=== PATIENT | male | born 1995 | race Two or more races ===

== ENCOUNTER 2017-02-09 22:37 | Emergency (ER) | payer OTHER ==
[~2017-02-09] VITALS: Ht 175.3 cm; Wt 54.2 kg
[~2017-02-09 22:37] MED LIST: AMOX-430 PO
[2017-02-10] MEDS: IBUPROFEN 600 MG TABLET PO ONE (00:41)
[2017-02-10] MEDS: ALBUTEROL SULFATE 2.5 MG/3 ML NEBU NEB ONE (00:42)
[2017-02-10] MEDS ORDERED: IBUPROFEN 600 MG TABLET ONE (00:49)
[2017-02-10] MEDS ORDERED: ALBUTEROL SULFATE 2.5 MG/3 ML NEBU ONE (00:50)
[2017-02-10 01:02] LABS: BILIRUBIN,DIRECT 0.1 mg/dL (0.0-0.2); BILIRUBIN,TOTAL 0.5 mg/dL (0.2-1.0); CALCIUM 9.1 mg/dL (8.5-10.1); CREATININE 0.9 mg/dL (0.6-1.3); POTASSIUM 3.5 mmol/L (3.5-5.1); TOTAL PROTEIN, SERUM 7.7 g/dL (6.4-8.2)
[2017-02-10 01:05] LABS: BASOPHILS % (AUTO) 0.4 % (0.0-2.0); EOSINOPHILS # (AUTO) 0.1 K/uL (0.0-0.7); EOSINOPHILS % (AUTO) 0.6 % (0.0-7.0); HEMOGLOBIN 13.1 g/dL (11.5-15.5); LYMPHOCYTES # (AUTO) 0.9 K/uL (0.8-4.8); LYMPHOCYTES % (AUTO) 9.4 % (20.5-74.5); MEAN CORPUSCULAR HEMOGLOBIN 29.6 uug (27.0-31.0); MEAN CORPUSCULAR HGB CONC 34 g/dL (32.0-37.0); MONOCYTES # (AUTO) 0.9 K/uL (0.1-1.30); MONOCYTES % (AUTO) 9.3 % (0-11); NEUTROPHILS # (AUTO) 8.2 K/uL (1.8-8.9); NEUTROPHILS % (AUTO) 80.3 % (31.5-64.5); PLATELET COUNT (AUTO) 161 K/uL (150-450); RED BLOOD CELL COUNT(AUTO) 4.43 MIL/uL (3.90-5.30); RED CELL DISTRIBUTION WIDTH 12.1 % (11.5-14.5); WHITE BLOOD COUNT (AUTO) 10.1 K/uL (4.5-14.5)
--- NOTE | 2017-02-10 02:01 | NUR ---
Patient discharged to home in stable conditon. Written and verbal after care instructions given. Patient verbalizes understanding of instructions.
[2017-02-10 02:05] VITALS: BP 118/62
== END 2017-02-10 02:01 | disposition home or self-care (01) ==
LOC: ER 22:37
DX: B34.9 Viral infection, unspecified (principal); M54.9 Dorsalgia, unspecified; F19.10 Other psychoactive substance abuse, uncomplicated
CPT/HCPCS: 36415; 71010; 80048; 80076; 85025; 93005; 94640; 99285; A4663 ×2

== ENCOUNTER 2017-02-10 13:24 | Emergency (ER) | payer OTHER ==
[~2017-02-10] VITALS: Ht 175.3 cm; Wt 54.0 kg
[2017-02-10] MEDS: IV NORMAL SALINE 1000 ML BAG IV ONE ×2 (15:30→17:45)
[2017-02-10 15:42] LABS: *BILIRUBIN,URIN NEGATIVE (NEGATIVE); *BLOOD, URINE NEGATIVE (NEGATIVE); *CLARITY,URINE CLEAR (CLEAR); *COLOR,URINE YELLOW (YELLOW); *KETONES,URINE NEGATIVE (NEGATIVE); *PROTEIN,URINE 1+ (NEGATIVE); LEUKOCYTE ESTERASE ,URINE NEGATIVE (NEGATIVE); NITRITE, URINE NEGATIVE (NEGATIVE); UGLUCOSE NEGATIVE (NEGATIVE)
[2017-02-10 15:42] LABS: BASOPHILS # (AUTO) 0.1 K/uL (0.0-0.2); BASOPHILS % (AUTO) 0.6 % (0.0-2.0); EOSINOPHILS % (AUTO) 0.2 % (0.0-7.0); HEMATOCRIT 42.6 % (35.0-45.0); HEMOGLOBIN 14.1 g/dL (11.5-15.5); LYMPHOCYTES # (AUTO) 0.9 K/uL (0.8-4.8); LYMPHOCYTES % (AUTO) 8.6 % (20.5-74.5); MEAN CORPUSCULAR HEMOGLOBIN 29.8 uug (27.0-31.0); MEAN CORPUSCULAR HGB CONC 33 g/dL (32.0-37.0); MEAN CORPUSCULAR VOLUME 90.1 fL (77.0-95.0); MONOCYTES # (AUTO) 1.2 K/uL (0.1-1.30); MONOCYTES % (AUTO) 11.2 % (0-11); NEUTROPHILS # (AUTO) 8.7 K/uL (1.8-8.9); NEUTROPHILS % (AUTO) 79.4 % (31.5-64.5); PLATELET COUNT (AUTO) 164 K/uL (150-450); RED BLOOD CELL COUNT(AUTO) 4.73 MIL/uL (3.90-5.30); RED CELL DISTRIBUTION WIDTH 12.2 % (11.5-14.5); WHITE BLOOD COUNT (AUTO) 10.9 K/uL (4.5-14.5)
[2017-02-10 15:43] LABS: CALCIUM 8.8 mg/dL (8.5-10.1); CREATININE 0.9 mg/dL (0.6-1.3)
[2017-02-10] MEDS: CLINDAMYCIN PHOSPHATE IV 600 MG in IV DEXTROSE 5% 100 ML IV ONE (15:43)
[2017-02-10] MEDS ORDERED: CLINDAMYCIN PHOSPHATE 600 MG/4 ML VIAL ONE (15:47)
[2017-02-10 15:50] LABS: TROPONIN I < 0.017 ng/mL (0.00-0.056)
[2017-02-10 15:53] LABS: MUCUS,URINE MANY /LPF (0-FEW); RBC,URINE 0-3 /HPF (0-3)
[2017-02-10 16:00] LABS: ALBUMIN 3.8 g/dL (3.4-5.0); BILIRUBIN,DIRECT 0.1 mg/dL (0.0-0.2); BILIRUBIN,TOTAL 0.5 mg/dL (0.2-1.0); TOTAL PROTEIN, SERUM 7.6 g/dL (6.4-8.2)
[2017-02-10 16:08] LABS: LACTIC ACID 1.7 mmol/L (0.4-2.0)
[2017-02-10] MEDS: KETOROLAC TROMETHAMINE 30 MG INJ IVP ONE (16:55)
[2017-02-10] MEDS ORDERED: KETOROLAC TROMETHAMINE 30 MG INJ ONE (17:02)
--- NOTE | 2017-02-10 18:24 | NUR ---
Patient discharged to home in stable conditon. Written and verbal after care instructions given. Patient verbalizes understanding of instructions.PT WALKS IN STEADY GAIT. PT CALLED FOR MOTHER TO COME AND WEB APPLICATION DEVELOPER THE PT.
[2017-02-10 18:28] VITALS: BP 111/71
== END 2017-02-10 18:29 | disposition home or self-care (01) ==
LOC: ER 13:24
DX: I88.8 Other nonspecific lymphadenitis (principal); J02.9 Acute pharyngitis, unspecified; F19.10 Other psychoactive substance abuse, uncomplicated
CPT/HCPCS: 36415; 80048; 80076; 81001; 83605; 84484; 85025; 85730; 86403; 87040 ×2; 87070; 87086; 87400; 93005; 96361; 96365; 96375; 99285; A4663; J1885; J3490 ×2; J7030 ×2; 70030-TC

== ENCOUNTER 2017-02-11 12:53 | Emergency (ER) | payer OTHER ==
[~2017-02-11] VITALS: Ht 165.1 cm; Wt 52.6 kg
--- NOTE | 2017-02-11 13:09 | NUR ---
DR CAMARA AT THE BEDSIDE FOR EVAL AND EXAM.
[2017-02-11 13:32] VITALS: BP 108/69
--- NOTE | 2017-02-11 13:32 | NUR ---
Patient discharged to home in stable conditon. Written and verbal after care instructions given. Patient verbalizes understanding of instructions.
== END 2017-02-11 13:32 | disposition home or self-care (01) ==
LOC: ER 12:53
DX: B34.9 Viral infection, unspecified (principal); F19.10 Other psychoactive substance abuse, uncomplicated
CPT/HCPCS: 99281; A4663

== ENCOUNTER 2017-02-14 21:48 | Emergency (ER) | payer OTHER ==
[~2017-02-14] VITALS: Ht 175.3 cm; Wt 54.0 kg
[2017-02-14] MEDS ORDERED: CEPH500C2 PO (22:02)
[2017-02-14] MEDS ORDERED: HYDROCODONE/APAP 5-325MG TABLET ONE (22:27)
[2017-02-14 22:30] VITALS: BP 112/75
[2017-02-14] MEDS ORDERED: HYDROCODONE/APAP 5-325MG TABLET PO ONE (22:30)
--- NOTE | 2017-02-14 22:30 | NUR ---
Patient discharged to home in stable conditon. Written and verbal after care instructions given. Patient verbalizes understanding of instructions. WALKED OUT OF ER WITH STEADY. NO DISTRESS NOTED
== END 2017-02-14 22:31 | disposition home or self-care (01) ==
LOC: ER 21:48
DX: J04.0 Acute laryngitis (principal); F19.10 Other psychoactive substance abuse, uncomplicated
CPT/HCPCS: A4663

== ENCOUNTER 2017-04-06 17:30 | Emergency (ER) | payer OTHER ==
[~2017-04-06] VITALS: Ht 175.3 cm; Wt 54.4 kg
[~2017-04-06 17:30] MED LIST changes: -AMOX-430 PO; +CEPH500C2 PO
--- NOTE | 2017-04-06 17:46 | NUR ---
Patient is resting comfortably on gurney, NAD, pending x-ray at this time
--- NOTE | 2017-04-06 18:49 | NUR ---
Patient discharged to home in stable conditon. Written and verbal after care instructions given to patient. Patient verbalizes understanding of instructions.
== END 2017-04-06 18:50 | disposition home or self-care (01) ==
LOC: ER 17:33
DX: R07.9 Chest pain, unspecified (principal); F41.9 Anxiety disorder, unspecified; F19.10 Other psychoactive substance abuse, uncomplicated
CPT/HCPCS: 71010; 93005; A4663

== ENCOUNTER 2017-06-08 23:38 | Emergency (ER) | payer OTHER ==
[~2017-06-08] VITALS: Ht 175.3 cm; Wt 59.0 kg
--- NOTE | 2017-06-08 23:41 | NUR ---
PATIENT C/O ANXIETY ATTACK THAT STARTED 1HR AGO, PT IS ALERT, ORIENTED X 4, NO RESP DISTRESS NOTED OR REPORTED UPON ASSESSMENT... MD AT BEDSIDE...
[2017-06-09] MEDS ORDERED: LORAZEPAM 0.5 MG TABLET PO ONE
--- NOTE | 2017-06-09 | NUR ---
Patient discharged to home in stable conditon. Written and verbal after care instructions given. Patient verbalizes understanding of instructions. Pt walked out of ER unassisted, pt advised not to drive, pt states girlfriend will be driving home...
[2017-06-09 00:01] VITALS: BP 121/77
[2017-06-09] MEDS ORDERED: LORAZEPAM 1 MG TABLET ONE (00:07)
== END 2017-06-09 00:02 | disposition home or self-care (01) ==
LOC: ER 23:41
DX: F41.9 Anxiety disorder, unspecified (principal)
CPT/HCPCS: A4663

== ENCOUNTER 2017-07-18 23:26 | Emergency (ER) | payer OTHER ==
[~2017-07-18] VITALS: Ht 175.3 cm; Wt 56.7 kg
--- NOTE | 2017-07-19 00:40 | NUR ---
MSE DONE BY DR MYLES AT BEDSIDE 05B.
[2017-07-19] MEDS ORDERED: ACETAMINOPHEN ES 500 MG TABLET PO ONE (00:45)
--- NOTE | 2017-07-19 01:00 | NUR ---
Patient is resting comfortably in bed with eyes closed
[2017-07-19] MEDS ORDERED: ACETAMINOPHEN ES 500 MG TABLET ONE (01:03)
[2017-07-19] MEDS ORDERED: POTASSIUM CHLORIDE 20 MEQ TAB.PRT.SR ONE (01:23)
--- NOTE | 2017-07-19 01:33 | NUR ---
DR MYLES MADE PATIENT AWARE OF TEST RESULTS WILL BE DC HOME.
--- NOTE | 2017-07-19 01:35 | NUR ---
Patient discharged to home in stable conditon. Written and verbal after care instructions given. Patient verbalizes understanding of instructions.
== END 2017-07-19 01:37 | disposition home or self-care (01) ==
LOC: ER 23:29
DX: J06.9 Acute upper respiratory infection, unspecified (principal); F41.9 Anxiety disorder, unspecified
CPT/HCPCS: 36415; 86403; 87070; 99284; A4663

== ENCOUNTER 2017-07-30 21:47 | Emergency (ER) | payer OTHER ==
[~2017-07-30] VITALS: Ht 175.3 cm; Wt 56.7 kg
[2017-07-30] MEDS ORDERED: ACETAMINOPHEN 325 MG TABLET PO ONE (22:15)
[2017-07-30] MEDS ORDERED: ACETAMINOPHEN 325 MG TABLET ONE (22:26)
--- NOTE | 2017-07-30 22:50 | NUR ---
Patient discharged to home in stable conditon. Written and verbal after care instructions given. Patient verbalizes understanding of instructions. Ambulated from ER with stable gait. All belongiongs with patient.
[2017-07-30 22:51] VITALS: BP 108/71
== END 2017-07-30 22:52 | disposition home or self-care (01) ==
LOC: ER 21:48
DX: S20.211A Contusion of right front wall of thorax, initial encounter (principal); F41.9 Anxiety disorder, unspecified; Y04.0XXA Assault by unarmed brawl or fight, initial encounter; Y93.89 Activity, other specified; Y99.8 Other external cause status; Y92.89 Other specified places as the place of occurrence of the external cause
CPT/HCPCS: 71101; A4663

== ENCOUNTER 2017-11-19 19:32 | Emergency (ER) | payer OTHER ==
[~2017-11-19] VITALS: Ht 175.3 cm; Wt 54.9 kg
--- NOTE | 2017-11-19 20:41 | NUR ---
Patient discharged to home in stable conditon. Written and verbal after care instructions given. Patient verbalizes understanding of instructions.
== END 2017-11-19 20:42 | disposition home or self-care (01) ==
LOC: ER 19:33
DX: R05 Cough (principal); R07.9 Chest pain, unspecified; F12.90 Cannabis use, unspecified, uncomplicated
CPT/HCPCS: 71010; A4663

== ENCOUNTER 2017-12-15 02:14 | Emergency (ER) | payer OTHER ==
[~2017-12-15] VITALS: Ht 175.3 cm; Wt 63.5 kg
--- NOTE | 2017-12-15 02:20 | NUR ---
Pt c/o CP, described as pushing and burning, 10/10, w/SOB, nausea, and FARFAN. Pt denies dizziness, no other complaints, no distress noted.
[2017-12-15] MEDS ORDERED: ACETAMINOPHEN 325 MG TABLET PO ONE (03:15)
[2017-12-15] MEDS ORDERED: ACETAMINOPHEN ES 500 MG TABLET ONE (03:35)
== END 2017-12-15 04:08 | disposition home or self-care (01) ==
LOC: ER 02:17
DX: F12.10 Cannabis abuse, uncomplicated (principal); F17.200 Nicotine dependence, unspecified, uncomplicated
CPT/HCPCS: 71045; 87400; 93005; A4663

== ENCOUNTER 2017-12-15 16:07 | Emergency (ER) | payer OTHER ==
[~2017-12-15] VITALS: Ht 175.3 cm; Wt 63.5 kg
[2017-12-15] MEDS ORDERED: IV NORMAL SALINE 1000 ML BAG IV ONE (19:00)
[2017-12-15] MEDS ORDERED: KETOROLAC TROMETHAMINE 15 MG INJ IVP ONE (19:00)
[2017-12-15] MEDS ORDERED: ONDANSETRON 4 MG/2 ML VIAL IV ONE (19:00)
[2017-12-15] MEDS ORDERED: ONDANSETRON 4 MG/2 ML VIAL ONE (19:19)
[2017-12-15] MEDS ORDERED: KETOROLAC TROMETHAMINE 15 MG INJ ONE (19:19)
[2017-12-15 19:33] LABS: BASOPHILS % (AUTO) 0.2 % (0.0-2.0); EOSINOPHILS % (AUTO) 0.1 % (0.0-7.0); HEMATOCRIT 38.4 % (36.7-47.1); HEMOGLOBIN 13.4 g/dL (12.5-16.3); LYMPHOCYTES # (AUTO) 0.2 K/uL (20.0-40.0); LYMPHOCYTES % (AUTO) 3.2 % (20.5-74.5); MEAN CORPUSCULAR HEMOGLOBIN 31.3 uug (23.8-33.4); MEAN CORPUSCULAR HGB CONC 35 g/dL (32.5-36.3); MEAN CORPUSCULAR VOLUME 89.7 fL (73.0-96.2); MONOCYTES # (AUTO) 1.1 K/uL (2.0-10.0); MONOCYTES % (AUTO) 16.7 % (0-11); NEUTROPHILS # (AUTO) 5.1 K/uL (1.8-8.9); NEUTROPHILS % (AUTO) 79.8 % (31.5-64.5); PLATELET COUNT (AUTO) 143 K/uL (152-348); RED BLOOD CELL COUNT(AUTO) 4.28 MIL/uL (4.06-5.63); WHITE BLOOD COUNT (AUTO) 6.4 K/uL (3.6-10.2)
[2017-12-15 19:36] LABS: POTASSIUM 3.3 mmol/L (3.5-5.1)
[2017-12-15 19:42] LABS: BILIRUBIN,DIRECT 0.1 mg/dL (0.0-0.2); BILIRUBIN,TOTAL 0.4 mg/dL (0.2-1.0)
[2017-12-15 21:13] LABS: BAND % (MANUAL) 7 % (0-10); LYMPHOCYTES % (MANUAL) 2 % (38-48); MONOCYTES % (MANUAL) 14 % (2-10); NEUTROPHILS % (MANUAL) 77 % (40-55)
--- NOTE | 2017-12-15 21:34 | NUR ---
Patient discharged to home in stable conditon. Written and verbal after care instructions given. Patient verbalizes understanding of instructions.
== END 2017-12-15 21:36 | disposition home or self-care (01) ==
LOC: ER 16:07
DX: B34.9 Viral infection, unspecified (principal); J20.8 Acute bronchitis due to other specified organisms; F17.200 Nicotine dependence, unspecified, uncomplicated
CPT/HCPCS: 36415; 71045; 85025; A4663; J1885; J2405; J7030

== ENCOUNTER 2017-12-16 12:42 | Emergency (ER) | payer OTHER ==
[~2017-12-16] VITALS: Ht 175.3 cm; Wt 63.5 kg
--- NOTE | 2017-12-16 14:06 | NUR ---
PT IS IN ROOM #1A. DR DAVIS EVALUATED THE PT.
[2017-12-16] MEDS ORDERED: IV NORMAL SALINE 1000 ML BAG IV ONE (15:15)
[2017-12-16 15:40] LABS: LYMPHOCYTES # (AUTO) 0.7 K/uL (20.0-40.0); MONOCYTES # (AUTO) 0.7 K/uL (2.0-10.0); NEUTROPHILS # (AUTO) 2.3 K/uL (1.8-8.9)
[2017-12-16 15:43] LABS: BASOPHILS % (AUTO) 0.7 % (0.0-2.0); HEMATOCRIT 41.1 % (36.7-47.1); HEMOGLOBIN 14.2 g/dL (12.5-16.3); LYMPHOCYTES % (AUTO) 19.7 % (20.5-74.5); MEAN CORPUSCULAR HGB CONC 35 g/dL (32.5-36.3); MEAN CORPUSCULAR VOLUME 89.8 fL (73.0-96.2); MONOCYTES % (AUTO) 19.4 % (0-11); NEUTROPHILS % (AUTO) 60.2 % (31.5-64.5); PLATELET COUNT (AUTO) 126 K/uL (152-348); RED BLOOD CELL COUNT(AUTO) 4.58 MIL/uL (4.06-5.63); WHITE BLOOD COUNT (AUTO) 3.8 K/uL (3.6-10.2)
[2017-12-16 15:46] LABS: CREATININE 0.9 mg/dL (0.6-1.3); POTASSIUM 3.9 mmol/L (3.5-5.1)
[2017-12-16 15:51] LABS: BILIRUBIN,DIRECT 0.1 mg/dL (0.0-0.2); BILIRUBIN,TOTAL 0.4 mg/dL (0.2-1.0); TOTAL PROTEIN, SERUM 7.5 g/dL (6.4-8.2)
[2017-12-16 16:33] LABS: BAND % (MANUAL) 8 % (0-10); LYMPHOCYTES % (MANUAL) 17 % (38-48); MONOCYTES % (MANUAL) 16 % (2-10); NEUTROPHILS % (MANUAL) 59 % (40-55)
[2017-12-16] MEDS ORDERED: KETOROLAC TROMETHAMINE 30 MG INJ IVP ONE (17:15)
[2017-12-16 17:23] LABS: *BILIRUBIN,URIN NEGATIVE (NEGATIVE); *BLOOD, URINE NEGATIVE (NEGATIVE); *CLARITY,URINE CLEAR (CLEAR); *COLOR,URINE YELLOW (YELLOW); *KETONES,URINE 1+ (NEGATIVE); *PROTEIN,URINE NEGATIVE (NEGATIVE); *UROBILINOGEN,URINE 0.2 E.U./dl (NORMAL); LEUKOCYTE ESTERASE ,URINE NEGATIVE (NEGATIVE); NITRITE, URINE NEGATIVE (NEGATIVE); UGLUCOSE NEGATIVE (NEGATIVE)
[2017-12-16 17:35] LABS: RBC,URINE 0-3 /HPF (0-3)
[2017-12-16] MEDS ORDERED: KETOROLAC TROMETHAMINE 30 MG INJ ONE (17:35)
[2017-12-16 17:36] LABS: MUCUS,URINE MANY /LPF (0-FEW); SQUAMOUS EPITHELIAL CELL,UR FEW /HPF (NONE SEEN)
[2017-12-16 18:25] VITALS: BP 104/87
== END 2017-12-16 18:16 | disposition home or self-care (01) ==
LOC: ER 12:54
DX: B34.9 Viral infection, unspecified (principal); F17.200 Nicotine dependence, unspecified, uncomplicated
CPT/HCPCS: 36415; 70030-TC; 83690; 85025; 85730; A4663; J1885; J7030

== ENCOUNTER 2017-12-17 17:12 | Emergency (ER) | payer OTHER ==
[~2017-12-17] VITALS: Ht 175.3 cm; Wt 52.2 kg
[2017-12-17] MEDS ORDERED: IBUPROFEN 600 MG TABLET PO ONE (17:45)
[2017-12-17 17:56] VITALS: BP 112/69
[2017-12-17] MEDS ORDERED: IBUPROFEN 600 MG TABLET ONE (18:08)
== END 2017-12-17 17:54 | disposition home or self-care (01) ==
LOC: ER 17:12
DX: R10.31 Right lower quadrant pain (principal); F17.200 Nicotine dependence, unspecified, uncomplicated
CPT/HCPCS: A4663

== ENCOUNTER 2018-07-02 15:43 | Emergency (ER) | payer OTHER ==
[~2018-07-02] VITALS: Ht 175.3 cm; Wt 54.4 kg
[2018-07-02 17:07] LABS: *AMPHETAMINE, URINE NEGATIVE (NEGATIVE); *BARBITURATE, URINE NEGATIVE (NEGATIVE); *CANNABINOID, URINE NEGATIVE (NEGATIVE); *COCCAINE, URINE NEGATIVE (NEGATIVE); *OPIATE, URINE NEGATIVE (NEGATIVE); *PHENCYCLIDINE SCREEN,URINE NEGATIVE (NEGATIVE)
--- NOTE | 2018-07-02 17:22 | NUR ---
Patient discharged to home in stable conditon. Written and verbal after care instructions given. Patient verbalizes understanding of instructions.
== END 2018-07-02 17:23 | disposition home or self-care (01) ==
LOC: ER 15:44
DX: J02.9 Acute pharyngitis, unspecified (principal); F17.200 Nicotine dependence, unspecified, uncomplicated
CPT/HCPCS: 36415; 71045; 80307; 86403; 93005; A4663

== ENCOUNTER 2018-07-13 22:08 | Emergency (ER) | payer OTHER ==
[~2018-07-13] VITALS: Ht 172.7 cm; Wt 61.7 kg
[2018-07-14] MEDS ORDERED: IV NORMAL SALINE 1000 ML BAG IV ONE (01:00)
[2018-07-14] MEDS ORDERED: CEFTRIAXONE 1 G in IV DEXTROSE 5% 50 ML IV ONE (01:00)
[2018-07-14] MEDS ORDERED: IBUPROFEN 600 MG TABLET PO ONE (01:00)
[2018-07-14 01:08] LABS: BASOPHILS % (AUTO) 0.2 % (0.0-2.0); EOSINOPHILS % (AUTO) 0.2 % (0.0-7.0); HEMOGLOBIN 14.8 g/dL (12.5-16.3); LYMPHOCYTES # (AUTO) 0.8 K/uL (20.0-40.0); LYMPHOCYTES % (AUTO) 5.8 % (20.5-51.5); MEAN CORPUSCULAR HEMOGLOBIN 31.5 uug (23.8-33.4); MEAN CORPUSCULAR HGB CONC 34 g/dL (32.5-36.3); MEAN CORPUSCULAR VOLUME 91.5 fL (73.0-96.2); MONOCYTES # (AUTO) 1.3 K/uL (2.0-10.0); MONOCYTES % (AUTO) 9.2 % (0.0-11.0); NEUTROPHILS # (AUTO) 12.3 K/uL (1.8-8.9); NEUTROPHILS % (AUTO) 84.6 % (38.5-71.5); PLATELET COUNT (AUTO) 183 K/uL (152-348); WHITE BLOOD COUNT (AUTO) 14.5 K/uL (3.6-10.2)
[2018-07-14] MEDS ORDERED: CEFTRIAXONE 1 G VIAL ONE (01:13)
[2018-07-14] MEDS ORDERED: IBUPROFEN 600 MG TABLET ONE (01:13)
[2018-07-14 01:17] LABS: CREATININE 1.1 mg/dL (0.6-1.3); POTASSIUM 3.6 mmol/L (3.5-5.1)
--- NOTE | 2018-07-14 03:00 | NUR ---
IV removed. Catheter intact and site benign. Pressure and 4x4 gauze applied to site. No bleeding noted.
--- NOTE | 2018-07-14 03:20 | NUR ---
Patient discharged to home in stable conditon. Written and verbal after care instructions given. Patient verbalizes understanding of instructions.
[2018-07-14 03:25] VITALS: BP 122/68
== END 2018-07-14 03:25 | disposition home or self-care (01) ==
LOC: ER 22:09
DX: J02.9 Acute pharyngitis, unspecified (principal); R55 Syncope and collapse; F17.200 Nicotine dependence, unspecified, uncomplicated
CPT/HCPCS: 36415; 71045; 80048; 83605; 85025; 93005; 96365; 99285; A4663 ×2; J0696; J7030; J7060

== ENCOUNTER 2018-07-17 06:24 | Emergency (ER) | payer OTHER ==
[~2018-07-17] VITALS: Ht 175.3 cm; Wt 54.4 kg
--- NOTE | 2018-07-17 06:56 | NUR ---
DR. BENEDICT AT BEDSIDE FOR MSE.
[2018-07-17] MEDS ORDERED: NEOMY/BACITRA/POLYMYXIN B OINT UD PACKET TP ONE ×3 (07:00→07:38)
[2018-07-17] MEDS ORDERED: LIDOCAINE 1%-EPI 1:100,000 20 ML VIAL TP ONE (07:00)
[2018-07-17] MEDS ORDERED: SODIUM BICARBONATE 4.2 % (NEUT) 5 ML VIAL TP ONE (07:00)
--- NOTE | 2018-07-17 07:37 | NUR ---
Patient discharged to home in stable conditon. Written and verbal after care instructions given. Patient verbalizes understanding of instructions. Stressed follow up.
== END 2018-07-17 07:40 | disposition home or self-care (01) ==
LOC: ER 06:26
DX: S01.511A Laceration without foreign body of lip, initial encounter (principal); F17.200 Nicotine dependence, unspecified, uncomplicated; Y04.0XXA Assault by unarmed brawl or fight, initial encounter; Y93.89 Activity, other specified; Y92.89 Other specified places as the place of occurrence of the external cause; Y99.8 Other external cause status
CPT/HCPCS: 12051; 99284; A4663; J3490 ×2

== ENCOUNTER 2018-07-22 12:44 | Emergency (ER) | payer OTHER ==
[~2018-07-22] VITALS: Ht 175.3 cm; Wt 54.4 kg
--- NOTE | 2018-07-22 12:57 | NUR ---
MSE COMPLETED, REMOVED SUTURES, PT D/C'D HOME, ACI GIVEN, PT AMBULATED W/O DIFF/TOOK ALL BELONGINGS.
[2018-07-22 12:58] VITALS: BP 110/77
== END 2018-07-22 12:59 | disposition home or self-care (01) ==
LOC: ER 12:44
DX: S01.81XD Laceration without foreign body of other part of head, subsequent encounter (principal); Z48.02 Encounter for removal of sutures; F17.200 Nicotine dependence, unspecified, uncomplicated; X58.XXXD Exposure to other specified factors, subsequent encounter
CPT/HCPCS: A4663

== ENCOUNTER 2018-07-29 00:33 | Emergency (ER) | payer OTHER ==
[~2018-07-29] VITALS: Ht 175.3 cm; Wt 54.4 kg
--- NOTE | 2018-07-29 01:15 | NUR ---
DR. GONZALEZ AT BEDSIDE FOR MSE.
--- NOTE | 2018-07-29 01:31 | NUR ---
Patient discharged to home in stable conditon. Written and verbal after care instructions given. Patient verbalizes understanding of instructions. PATIENT LEFT WITH STABLE GAIT.
[2018-07-29 01:32] VITALS: BP 104/68
== END 2018-07-29 01:33 | disposition home or self-care (01) ==
LOC: ER 00:38
DX: S09.93XA Unspecified injury of face, initial encounter (principal); F17.200 Nicotine dependence, unspecified, uncomplicated; X58.XXXA Exposure to other specified factors, initial encounter; Y93.89 Activity, other specified; Y92.89 Other specified places as the place of occurrence of the external cause; Y99.8 Other external cause status
CPT/HCPCS: A4663

== ENCOUNTER 2018-10-05 21:35 | Emergency (ER) | payer OTHER ==
[~2018-10-05] VITALS: Ht 172.7 cm; Wt 52.2 kg
--- NOTE | 2018-10-05 22:07 | NUR ---
PT A/OX4, ABLE TO FOLLOW COMMAND. PT C/O WEAKNESS, NAUSEA, ABD PAIN, AND COUGH X 1 WEEK. PT STATES ABD PAIN STARTED ABOUT 2 HOURS AGO, NON-PROVOKING, SHARP IN QUALITY, DOES NOT RADIATE, 10/10, CONSTANT. LBM YESTERDAY. VSS PT DENIES C/P, SOB, VOMIT, DIZZINESS, HEADACHE.
[2018-10-05] MEDS ORDERED: ONDANSETRON ODT 4 MG TAB.RAPDIS ONE (22:13)
[2018-10-05] MEDS ORDERED: ONDANSETRON ODT 4 MG TAB.RAPDIS SL ONE (22:15)
--- NOTE | 2018-10-05 22:35 | NUR ---
RF TEST TECHNICIAN AT BEDSIDE.
--- NOTE | 2018-10-05 23:29 | NUR ---
Patient discharged to home in stable conditon. Written and verbal after care instructions given. Patient verbalizes understanding of instructions. PT D/C W/ PRESCRIPTIONS. ALL BELONGINGS W/ PT. PT SELF-AMBULATED W/O DIFFICULTY.
[2018-10-05 23:30] VITALS: BP 122/76
== END 2018-10-05 23:31 | disposition home or self-care (01) ==
LOC: ER 21:44
DX: R05 Cough (principal); R06.02 Shortness of breath; F17.200 Nicotine dependence, unspecified, uncomplicated; R09.89 Other specified symptoms and signs involving the circulatory and respiratory systems; F12.10 Cannabis abuse, uncomplicated; F41.9 Anxiety disorder, unspecified
CPT/HCPCS: 71045; A4663; Q0162

== ENCOUNTER 2018-10-16 17:17 | Emergency (ER) | payer OTHER ==
[~2018-10-16] VITALS: Ht 175.3 cm; Wt 51.9 kg
[2018-10-16] MEDS ORDERED: VANCOMYCIN IV 1,000 MG in IV DEXTROSE 5% 250 ML IV ONE (18:45)
[2018-10-16] MEDS ORDERED: PIPERACILLIN/TAZOBACTAM/D5W 0 ML IV ONE (18:46)
[2018-10-16] MEDS ORDERED: VANCOMYCIN IV 200 ML ONE (18:46)
[2018-10-16 18:52] LABS: BASOPHILS # (AUTO) 0.1 K/uL (0.0-8.0); BASOPHILS % (AUTO) 0.7 % (0.0-2.0); EOSINOPHILS # (AUTO) 0.1 K/uL (0.0-0.7); EOSINOPHILS % (AUTO) 1.1 % (0.0-7.0); HEMATOCRIT 42.7 % (36.7-47.1); HEMOGLOBIN 14.7 g/dL (12.5-16.3); LYMPHOCYTES # (AUTO) 2.3 K/uL (20.0-40.0); LYMPHOCYTES % (AUTO) 26.5 % (20.5-51.5); MEAN CORPUSCULAR HEMOGLOBIN 31.3 uug (23.8-33.4); MEAN CORPUSCULAR HGB CONC 35 g/dL (32.5-36.3); MEAN CORPUSCULAR VOLUME 90.8 fL (73.0-96.2); NEUTROPHILS # (AUTO) 5.1 K/uL (1.8-8.9); NEUTROPHILS % (AUTO) 59.7 % (38.5-71.5); PLATELET COUNT (AUTO) 193 K/uL (152-348); RED BLOOD CELL COUNT(AUTO) 4.71 MIL/uL (4.06-5.63); WHITE BLOOD COUNT (AUTO) 8.5 K/uL (3.6-10.2)
[2018-10-16 19:00] LABS: CREATININE 0.9 mg/dL (0.6-1.3); POTASSIUM 3.8 mmol/L (3.5-5.1)
[2018-10-16 19:05] LABS: BILIRUBIN,TOTAL 0.4 mg/dL (0.2-1.0); TOTAL PROTEIN, SERUM 8.1 g/dL (6.4-8.2)
--- NOTE | 2018-10-16 19:19 | NUR ---
Patient's visitor called for help and stated patient was "choking." Staff and ERMD immediately assessed patient and observed that he was breathing minimally and his skin was flushed. Patient was repositioned and was found to be rigid, but able to breath and holding his breath. IVPB stopped. Patient was nonverbal and nonresponsive to voice or touch. ERMD attributed this to an anxiety attack, vital signs WNL, patient began to breath at a more steady rate. Approximately 3 minutes after, patient began to cough and speak normally with his visitor. No acute distress at this time.
--- NOTE | 2018-10-16 19:53 | NUR ---
Patient to RADIOLOGY for CT via [facility], consent signed.
[2018-10-16] MEDS ORDERED: IV NORMAL SALINE 250 ML IV ONE (20:01)
[2018-10-16] MEDS ORDERED: IOHEXOL 300MG/ML 100 ML INFUS..BTL ONE (20:01)
[2018-10-16] MEDS ORDERED: SWABABLE VALVE TRANSFER SET EA MC ONE (20:01)
[2018-10-16] MEDS ORDERED: NORMAL SALINE FLUSH 10 ML DISP.SYRIN ONE (20:01)
--- NOTE | 2018-10-16 21:28 | NUR ---
Call received from Department Of Sociology Chair for patient's insurance. Staff was informed that patient is capitated to [facility], faxed clinical information to senior case manager.
--- NOTE | 2018-10-16 21:34 | NUR ---
MAXIMO speaking to from [facility]
--- NOTE | 2018-10-16 22:12 | NUR ---
Call received from Communication Equipment Mechanic, March. Patient to be transferred to [facility], Room 319A. Patient accepted by Dr. Rodriguez. ETA for transportation pending.
--- NOTE | 2018-10-16 23:32 | NUR ---
SBAR report given to JEAN CARLOS at [facility].
--- NOTE | 2018-10-16 23:49 | NUR ---
Patient Tranfers to outside Facility Physician: Dr. Rodriguez Location: [facility]
== END 2018-10-16 23:51 | disposition short-term general hospital (02) ==
LOC: ER 17:19
DX: L08.9 Local infection of the skin and subcutaneous tissue, unspecified (principal); F17.200 Nicotine dependence, unspecified, uncomplicated
CPT/HCPCS: 36415; 70487; 80053; 85025; 85610; 96365; 96366; 99285; J3370; Q9967; A4663; J2543; J3490; J7050

== ENCOUNTER 2018-12-08 20:24 | Emergency (ER) | payer OTHER ==
[~2018-12-08] VITALS: Ht 175.3 cm; Wt 54.4 kg
[2018-12-08] MEDS ORDERED: CEFTRIAXONE 1 G VIAL IM ONE (21:30)
[2018-12-08] MEDS ORDERED: CEFTRIAXONE 1 G VIAL ONE (21:43)
--- NOTE | 2018-12-08 21:54 | NUR ---
Patient discharged to home in stable conditon. Written and verbal after care instructions given. Patient verbalizes understanding of instructions. Pt. d/c per MD orders, d/c papers signed, all belongings w/ pt, no acute distress, ambulated out of ED w/ steady gait,
== END 2018-12-08 21:57 | disposition home or self-care (01) ==
LOC: ER 20:26
DX: L70.0 Acne vulgaris (principal); Z71.6 Tobacco abuse counseling; F17.290 Nicotine dependence, other tobacco product, uncomplicated
CPT/HCPCS: 99283; 99406; J0696; J3490; A4663

== ENCOUNTER 2019-03-04 23:27 | Emergency (ER) | payer OTHER ==
[~2019-03-04] VITALS: Ht 175.3 cm; Wt 54.4 kg
[2019-03-05] MEDS ORDERED: ONDANSETRON ODT 4 MG TAB.RAPDIS SL ONE
[2019-03-05] MEDS ORDERED: ONDANSETRON ODT 4 MG TAB.RAPDIS ONE (00:05)
--- NOTE | 2019-03-05 00:06 | NUR ---
Phleb. tech. at bedside for blood draw,
[2019-03-05 00:16] LABS: BASOPHILS % (AUTO) 0.6 % (0.0-2.0); EOSINOPHILS # (AUTO) 0.1 K/uL (0.0-0.7); EOSINOPHILS % (AUTO) 2.1 % (0.0-7.0); HEMATOCRIT 40.8 % (36.7-47.1); LYMPHOCYTES # (AUTO) 1.4 K/uL (20.0-40.0); LYMPHOCYTES % (AUTO) 23.2 % (20.5-51.5); MEAN CORPUSCULAR HEMOGLOBIN 30.7 uug (23.8-33.4); MEAN CORPUSCULAR HGB CONC 35 g/dL (32.5-36.3); MEAN CORPUSCULAR VOLUME 89.2 fL (73.0-96.2); MONOCYTES # (AUTO) 0.6 K/uL (2.0-10.0); NEUTROPHILS # (AUTO) 3.7 K/uL (1.8-8.9); NEUTROPHILS % (AUTO) 63.1 % (38.5-71.5); PLATELET COUNT (AUTO) 194 K/uL (152-348); RED BLOOD CELL COUNT(AUTO) 4.57 MIL/uL (4.06-5.63); WHITE BLOOD COUNT (AUTO) 5.9 K/uL (3.6-10.2)
--- NOTE | 2019-03-05 00:16 | NUR ---
Rad. tech. at bedside for CXR
--- NOTE | 2019-03-05 00:27 | NUR ---
Note femi in EDM - 03/05/19 at 0031 by JUAN Patient discharged to home in stable conditon. Written and verbal after care instructions given. Patient verbalizes understanding of instructions. Pt. d/c w/ prescription per MD order, all belongings w/ pt., ID band removed, ambulated off unit w/ steady gait, NAD
[2019-03-05 00:32] LABS: BILIRUBIN,DIRECT 0.1 mg/dL (0.0-0.2); BILIRUBIN,TOTAL 0.3 mg/dL (0.2-1.0); POTASSIUM 3.5 mmol/L (3.5-5.1); TOTAL PROTEIN, SERUM 7.4 g/dL (6.4-8.2)
--- NOTE | 2019-03-05 01:10 | NUR ---
Patient discharged to home in stable conditon. Written and verbal after care instructions given. Patient verbalizes understanding of instructions. Pt. d/c w/ prescription per MD order, all belongings w/ pt., ID band removed, ambulated off unit w/ cesar gait, NAD
== END 2019-03-05 01:14 | disposition home or self-care (01) ==
LOC: ER 23:27
DX: R51 Headache (principal); R11.0 Nausea; H53.8 Other visual disturbances; R50.9 Fever, unspecified; R05 Cough; F17.290 Nicotine dependence, other tobacco product, uncomplicated; V49.9XXA Car occupant (driver) (passenger) injured in unspecified traffic accident, initial encounter; Y93.89 Activity, other specified; Y92.89 Other specified places as the place of occurrence of the external cause; Y99.8 Other external cause status
CPT/HCPCS: 36415; 71045; 85025; A4663; Q0162

== ENCOUNTER 2019-08-25 19:45 | Emergency (ER) | payer SELFPAY ==
--- NOTE | 2019-08-25 21:09 | NUR ---
Pt not in waiting room.
== END 2019-08-25 21:10 | disposition left against medical advice (07) ==
LOC: ER 19:47
DX: Z53.21 Procedure and treatment not carried out due to patient leaving prior to being seen by health care provider (principal)

== ENCOUNTER 2019-08-25 21:45 | Emergency (ER) | payer OTHER ==
[~2019-08-25] VITALS: Ht 175.3 cm; Wt 51.3 kg
[2019-08-25] MEDS ORDERED: NEOMY/BACITRA/POLYMYXIN B OINT UD PACKET TP ONE ×2 (22:30→22:31)
--- NOTE | 2019-08-25 22:35 | NUR ---
Patient discharged to home in stable conditon. Written and verbal after care instructions given. Patient verbalizes understanding of instructions. patient self ambulatory withs teady gait. exit care package and personal belongings taken with the patient,
[2019-08-25 23:11] VITALS: BP 111/70
== END 2019-08-25 22:36 | disposition home or self-care (01) ==
LOC: ER 21:51
DX: T23.022A Burn of unspecified degree of single left finger (nail) except thumb, initial encounter (principal); F17.200 Nicotine dependence, unspecified, uncomplicated; X19.XXXA Contact with other heat and hot substances, initial encounter; Y93.89 Activity, other specified; Y92.89 Other specified places as the place of occurrence of the external cause; Y99.8 Other external cause status
CPT/HCPCS: A4663

== ENCOUNTER 2019-09-01 18:35 | Emergency (ER) | payer OTHER ==
[~2019-09-01] VITALS: Ht 175.3 cm; Wt 52.2 kg
--- NOTE | 2019-09-01 19:08 | NUR ---
DR DICKERSON at bedside for MSE.
--- NOTE | 2019-09-01 19:24 | NUR ---
XRAY AT BEDSIDE.
--- NOTE | 2019-09-01 20:01 | NUR ---
Patient discharged to home in stable conditon. Written and verbal after care instructions given. Patient verbalizes understanding of instructions. Pt ambulated out of ER with steady gait, no acute signs of distress, VSS, all belongings taken.
[2019-09-01 20:02] VITALS: BP 110/80
== END 2019-09-01 20:01 | disposition home or self-care (01) ==
LOC: ER 18:35
DX: S13.4XXA Sprain of ligaments of cervical spine, initial encounter (principal); M54.6 Pain in thoracic spine; F17.200 Nicotine dependence, unspecified, uncomplicated; V43.52XA Car driver injured in collision with other type car in traffic accident, initial encounter; Y93.89 Activity, other specified; Y92.89 Other specified places as the place of occurrence of the external cause; Y99.8 Other external cause status
CPT/HCPCS: 72072; A4663

== ENCOUNTER 2019-09-25 20:23 | Emergency (ER) | payer OTHER ==
[~2019-09-25] VITALS: Ht 172.7 cm; Wt 49.9 kg
--- NOTE | 2019-09-25 21:17 | NUR ---
Yao arrived at the ER with chief complaint of dyr heavinnf since 1600 today and severe headache. Pt AAOx4. No cardiovascular concern. Not in respiratory distress. Denies any vomitting or diarrhea. Patient reported eating a burger and cookie between [id number] and started not feeling well on his stomach. Also complained of severe headache 10/10.
--- NOTE | 2019-09-25 21:34 | NUR ---
Dr. Trejo at bedside for MSE.
[2019-09-25] MEDS ORDERED: MAG HYDROX/AL HYDROX/SIMETH 30 ML LIQUID UDC PO ONE (21:45)
[2019-09-25] MEDS ORDERED: ONDANSETRON 4 MG/2 ML VIAL IV ONE (21:45)
[2019-09-25] MEDS ORDERED: LIDOCAINE VISCUS 2% 15 ML UDC MM ONE (21:45)
[2019-09-25] MEDS ORDERED: IV NORMAL SALINE 1000 ML BAG IV ONE (21:45)
[2019-09-25 21:59] LABS: BASOPHILS % (AUTO) 0.4 % (0.0-2.0); EOSINOPHILS % (AUTO) 0.7 % (0.0-7.0); HEMATOCRIT 42.1 % (36.7-47.1); HEMOGLOBIN 14.3 g/dL (12.5-16.3); LYMPHOCYTES # (AUTO) 1.7 K/uL (20.0-40.0); LYMPHOCYTES % (AUTO) 24.4 % (20.5-51.5); MEAN CORPUSCULAR HEMOGLOBIN 30.8 uug (23.8-33.4); MEAN CORPUSCULAR HGB CONC 34 g/dL (32.5-36.3); MEAN CORPUSCULAR VOLUME 90.5 fL (73.0-96.2); MONOCYTES # (AUTO) 0.7 K/uL (2.0-10.0); MONOCYTES % (AUTO) 9.4 % (0.0-11.0); NEUTROPHILS # (AUTO) 4.5 K/uL (1.8-8.9); NEUTROPHILS % (AUTO) 65.1 % (38.5-71.5); PLATELET COUNT (AUTO) 205 K/uL (152-348); RED BLOOD CELL COUNT(AUTO) 4.65 MIL/uL (4.06-5.63)
[2019-09-25] MEDS ORDERED: LIDOCAINE VISCUS 2% 15 ML UDC ONE (22:03)
[2019-09-25] MEDS ORDERED: ONDANSETRON 4 MG/2 ML VIAL ONE (22:03)
[2019-09-25] MEDS ORDERED: MAG HYDROX/AL HYDROX/SIMETH 30 ML LIQUID UDC ONE (22:04)
[2019-09-25 22:05] LABS: CREATININE 0.9 mg/dL (0.6-1.3); POTASSIUM 3.6 mmol/L (3.5-5.1)
[2019-09-25 22:11] LABS: BILIRUBIN,DIRECT 0.1 mg/dL (0.0-0.2); BILIRUBIN,TOTAL 0.4 mg/dL (0.2-1.0); TOTAL PROTEIN, SERUM 8.2 g/dL (6.4-8.2)
--- NOTE | 2019-09-25 23:14 | NUR ---
Dr. Trejo at bedside.
[2019-09-25 23:48] VITALS: BP 100/74
--- NOTE | 2019-09-25 23:48 | NUR ---
Patient discharged to home in stable conditon. Written and verbal after care instructions given. Patient verbalizes understanding of instructions. Patient ambulated with steady gait. All belongings with pt.
== END 2019-09-25 23:48 | disposition home or self-care (01) ==
LOC: ER 20:27
DX: R11.0 Nausea (principal); R10.13 Epigastric pain; R51 Headache; F17.200 Nicotine dependence, unspecified, uncomplicated
CPT/HCPCS: 36415; 80048; 80076; 83690; 85025; 96374; 99283; J2405; A4663; J7030

== ENCOUNTER 2019-11-13 19:06 | Inpatient (IN) | payer OTHER ==
[~2019-11-13] VITALS: Ht 175.3 cm; Wt 52.7 kg
--- NOTE | 2019-11-13 19:45 | NUR ---
OBSERVED PATIENT WALKING INTO ER ROOM 1B, CHANGING INTO HOSPITAL GOWN WITH HELP OF FAMILY AT BEDSIDE. WAS CALLED INTO ROOM BY FAMILY FOR PATIENT NON VERBAL AND SHAKING WHILE LAYING DOEN IN THE BED, DR. BAKER TO CALLED TO EVALUATE.
--- NOTE | 2019-11-13 19:50 | NUR ---
DR. BAKER AT BEDSIDE FOR MSE
--- NOTE | 2019-11-13 19:53 | NUR ---
blood sugar 93mg/dl
[2019-11-13 20:07] LABS: BASOPHILS % (AUTO) 0.6 % (0.0-2.0); EOSINOPHILS # (AUTO) 0.1 K/uL (0.0-0.7); HEMATOCRIT 44.5 % (36.7-47.1); LYMPHOCYTES # (AUTO) 2.5 K/uL (20.0-40.0); LYMPHOCYTES % (AUTO) 33.4 % (20.5-51.5); MEAN CORPUSCULAR HEMOGLOBIN 30.3 uug (23.8-33.4); MEAN CORPUSCULAR HGB CONC 34 g/dL (32.5-36.3); MONOCYTES # (AUTO) 0.9 K/uL (2.0-10.0); MONOCYTES % (AUTO) 11.7 % (0.0-11.0); NEUTROPHILS % (AUTO) 53.3 % (38.5-71.5); PLATELET COUNT (AUTO) 215 K/uL (152-348); RED BLOOD CELL COUNT(AUTO) 4.94 MIL/uL (4.06-5.63); WHITE BLOOD COUNT (AUTO) 7.5 K/uL (3.6-10.2)
[2019-11-13 20:15] LABS: CARBON DIOXIDE 28 mmol/L (21-32); CHLORIDE 101 mmol/L (98-107); GLUCOSE 94 mg/dL (74-106); POTASSIUM 3.4 mmol/L (3.5-5.1); UREA NITROGEN, BLOOD 16 mg/dL (7-18)
[2019-11-13 20:21] LABS: ALANINE AMINOTRANSFERASE 13 U/L (16-63); ALKALINE PHOSPHATASE 70 U/L (50-136); ASPARTATE AMINOTRANSFERASE 12 U/L (15-37); BILIRUBIN,DIRECT 0.1 mg/dL (0.0-0.2); BILIRUBIN,TOTAL 0.3 mg/dL (0.2-1.0); TOTAL PROTEIN, SERUM 8.3 g/dL (6.4-8.2)
[2019-11-13 20:30] LABS: ETHANOL < 3 MG/DL (0-0)
[2019-11-13] MEDS ORDERED: LEVETIRACETAM IV 500 MG in IV DEXTROSE 5% 100 ML IV ONE ×2 (20:45→21:45)
[2019-11-13] MEDS ORDERED: LEVETIRACETAM 500 MG/5 ML VIAL IV ONE ×2 (20:47→21:38)
[2019-11-13 20:48] LABS: THYROID STIMULATING HORMONE 1.097 mIU/mL (0.358-3.740)
[2019-11-13 21:06] LABS: *BILIRUBIN,URIN NEGATIVE (NEGATIVE); *BLOOD, URINE NEGATIVE (NEGATIVE); *COLOR,URINE YELLOW (YELLOW); *KETONES,URINE NEGATIVE (NEGATIVE); *UROBILINOGEN,URINE 0.2 E.U./dl (NORMAL); LEUKOCYTE ESTERASE ,URINE NEGATIVE (NEGATIVE); NITRITE, URINE NEGATIVE (NEGATIVE); UGLUCOSE TRACE (NEGATIVE)
[2019-11-13 21:09] LABS: *CLARITY,URINE HAZY (CLEAR)
[2019-11-13 21:12] LABS: BACTERIA,URINE NONE SEEN /HPF (NONE SEEN); RBC,URINE 0-3 /HPF (0-3); SQUAMOUS EPITHELIAL CELL,UR FEW /HPF (NONE SEEN); URINE AMORPHOUS URATE MODERATE /HPF; WBC,URINE 0-3 /HPF (0-3)
--- NOTE | 2019-11-13 21:17 | NUR ---
SPOKE WITH RAGHU FROM [facility] [employer] [facility], REPORT GIVEN.
--- NOTE | 2019-11-13 21:27 | NUR ---
JUAQUIN HILL, ROSAMARIA Ceja IT FIELD TECHNICIAN
[2019-11-13 21:30] LABS: *AMPHETAMINE, URINE NEGATIVE (NEGATIVE); *BARBITURATE, URINE NEGATIVE (NEGATIVE); *CANNABINOID, URINE NEGATIVE (NEGATIVE); *COCCAINE, URINE NEGATIVE (NEGATIVE); *OPIATE, URINE NEGATIVE (NEGATIVE); *PHENCYCLIDINE SCREEN,URINE NEGATIVE (NEGATIVE)
--- NOTE | 2019-11-13 21:40 | NUR ---
PATIENT HAD ANOTHER EPISODE OF SEIZURE, OBSERVED PATIENT WITH EYES CLOSED, NOT RESPONDING, LEFT FOOT CONTRACTED, SEIZURE LASTED FOR 60 SECONDS, MD NOTIFIED AND NEW ORDERS RECEIVED. WILL CONTINUE TO MONITOR PATIENT.
[2019-11-13] MEDS ORDERED: ZOLPIDEM 5 MG TABLET PO PRN (21:45)
[2019-11-13] MEDS ORDERED: MAGNESIUM HYDROXIDE 30 ML LIQUID UDC PO PRN (21:45)
[2019-11-13] MEDS ORDERED: HYDROCODONE/APAP 5-325MG TABLET PO PRN (21:45)
[2019-11-13] MEDS ORDERED: Z GUARD REMEDY PASTE 57 GM TUBE TOP PRN (21:45)
[2019-11-13] MEDS ORDERED: ACETAMINOPHEN 325 MG TABLET PO PRN (21:45)
--- NOTE | 2019-11-13 21:46 | NUR ---
Pt. admitted to TELE , under care of Dr. BRADLEY Belongs List completed.
[2019-11-13] MEDS ORDERED: LORAZEPAM 2 MG/1 ML VIAL IV ONE (22:00)
[2019-11-13] MEDS ORDERED: LORAZEPAM 2 MG/1 ML VIAL ONE (22:01)
--- NOTE | 2019-11-13 22:03 | NUR ---
DR. BRADLEY AT BEDSIDE.
--- NOTE | 2019-11-13 22:14 | NUR ---
DR. PARK ON THE LINE SPEAKING WITH DR BAKER.
--- NOTE | 2019-11-13 22:35 | NUR ---
PATIENT WILL BE ADMITTD TO CCU3, REPORT GIVEN TO ALEE COOPER. MRSA SWAB DONE.
--- NOTE | 2019-11-13 22:45 | NUR ---
SIERRA GOODMAN A/A/O XS 4,VSS
--- NOTE | 2019-11-13 22:51 | NUR ---
TRANSPORTED PATIENT VIA GURNEY AND PRODUCTION WEIGHER TO CCU3, STABLE AT THIS TIME.
[2019-11-13 23:00] VITALS: BP 107/68
[2019-11-13] MEDS: IV NS 1000 ML 1,000 ML IV PRN (23:01)
[2019-11-13] MEDS ORDERED: LORAZEPAM 2 MG/1 ML VIAL IV PRN (23:15)
[2019-11-13 23:30] VITALS: BP 84/45
[2019-11-14] VITALS (27 sets, daily range): BP systolic 82–140; BP diastolic 33–73
--- NOTE | 2019-11-14 00:10 | NUR ---
CALLED ABOUT PT LOW B/P ORDERS OBTAINED
[2019-11-14] MEDS ORDERED: IV NORMAL SALINE 500 ML IV ONE (00:15)
--- NOTE | 2019-11-14 07:30 | NUR ---
NO SZ THIS SHIFT
--- NOTE | 2019-11-14 07:30 | NUR ---
HASN'T VOIDED SINCE ARRIVAL, ABDOMEN SOFT, DENIES HAVING TO VOID, NO DISTRESS NOTED
--- NOTE | 2019-11-14 07:45 | NUR ---
Patient had tonic clonic seizure, drooling, and immediately responsive again. nearly 5 minutes later, patient experienced another tonic clonic seizure with drooling and again immediately responsive. IV Ativan given as ordered.
[2019-11-14 07:58] LABS: BILIRUBIN,TOTAL 0.3 mg/dL (0.2-1.0); CREATININE 0.9 mg/dL (0.6-1.3); POTASSIUM 3.7 mmol/L (3.5-5.1); TOTAL PROTEIN, SERUM 6.6 g/dL (6.4-8.2)
--- NOTE | 2019-11-14 08:00 | NUR ---
Contacted Dr. Pleitez and received orders for change in Keppra 1000mg q12 and EEG to be done.
[2019-11-14] MEDS ORDERED: LEVETIRACETAM 500 MG/5 ML LIQUID UDC NG SCH (09:00)
[2019-11-14] MEDS ORDERED: LEVETIRACETAM IV 1,000 MG in IV DEXTROSE 5% 100 ML IV SCH (09:00)
[2019-11-14] MEDS: ONDANSETRON 4 MG/2 ML VIAL IV PRN ×2 (11:39→22:27)
[2019-11-14] MEDS: IV NS 1000 ML 1,000 ML IV PRN (11:54)
--- NOTE | 2019-11-14 19:33 | NUR ---
report given to data center consultant nurse, patient in bed, awake, no distress noted at this time, bed in low position,side rails up x2, suction equipment at bedside and padded rails on.
[2019-11-14] MEDS: LEVETIRACETAM IV 1,500 MG in IV DEXTROSE 5% 100 ML IV SCH (20:21)
--- NOTE | 2019-11-14 21:42 | NUR ---
refuse scd's machine
--- NOTE | 2019-11-14 21:45 | NUR ---
Received patient from CCU. A/O x 4. No acute distress noted. Side rails padded. TELE SR at 74. Room air. IVF on the right AC, patent and intact. Oriented patient safely in the room. Safety initiated. Bed alarm on. Will continue to monitor.
--- NOTE | 2019-11-14 22:30 | NUR ---
Patient c/o Nausea and vomiting. Zofran given, will continue to monitor.
[2019-11-15 04:00] VITALS: BP 97/46
[2019-11-15] MEDS: IV NS 1000 ML 1,000 ML IV PRN (06:32)
--- NOTE | 2019-11-15 06:39 | NUR ---
Patient slept intermittently t/o shift. No acute distress noted. TELE remains SR at 71. Remains in RA. Denies Chest Pain or SOB. No seizures episodes. Vital signs stable. Good urine output. Safety and comfort measures maintained t/o shift. All meds given as ordered. All needs met.
--- NOTE | 2019-11-15 06:50 | NUR ---
TEXTED DR. RAMACHANDRAN FOR MRI APPROVAL.
[2019-11-15 07:02] LABS: BILIRUBIN,TOTAL 0.2 mg/dL (0.2-1.0); CREATININE 0.9 mg/dL (0.6-1.3); PHOSPHOROUS 3.9 mg/dL (2.5-4.9); POTASSIUM 3.8 mmol/L (3.5-5.1)
[2019-11-15 07:12] LABS: BASOPHILS % (AUTO) 0.6 % (0.0-2.0); EOSINOPHILS # (AUTO) 0.1 K/uL (0.0-0.7); EOSINOPHILS % (AUTO) 2.1 % (0.0-7.0); HEMOGLOBIN 13.2 g/dL (12.5-16.3); LYMPHOCYTES # (AUTO) 1.2 K/uL (20.0-40.0); LYMPHOCYTES % (AUTO) 25.5 % (20.5-51.5); MEAN CORPUSCULAR HGB CONC 33 g/dL (32.5-36.3); MONOCYTES # (AUTO) 0.6 K/uL (2.0-10.0); MONOCYTES % (AUTO) 12.9 % (0.0-11.0); NEUTROPHILS # (AUTO) 2.9 K/uL (1.8-8.9); NEUTROPHILS % (AUTO) 58.9 % (38.5-71.5); PLATELET COUNT (AUTO) 176 K/uL (152-348); RED BLOOD CELL COUNT(AUTO) 4.39 MIL/uL (4.06-5.63); WHITE BLOOD COUNT (AUTO) 4.9 K/uL (3.6-10.2)
--- NOTE | 2019-11-15 07:38 | NUR ---
MRI APPROVED, EQUITIES ANALYST ELAINE NOTIFIED VIA TEXT.
--- NOTE | 2019-11-15 08:00 | NUR ---
AWAKE ALERT AND ORIENTED X3 NO SS OF PAIN OR DISTRESS OR SIGNS OF SEIZURE ACTIVITY. SR ON MONITOR CONTINUE OBSERVATION
[2019-11-15 08:09] VITALS: BP 105/54
[2019-11-15] MEDS: LEVETIRACETAM IV 1,500 MG in IV DEXTROSE 5% 100 ML IV SCH (08:46)
[2019-11-15] MEDS ORDERED: LORAZEPAM 2 MG/1 ML VIAL IV PRN (09:00)
[2019-11-15 10:00] VITALS: BP_SYST 105; BP_SYST 118; BP_SYST 98; BP_DIAS 51; BP_DIAS 54; BP_DIAS 55
--- NOTE | 2019-11-15 10:30 | NUR ---
TO KAYODE SALMON FOR MRI OF THE BRAIN VIA AMBULANCE
--- NOTE | 2019-11-15 12:00 | NUR ---
back from [facility] stable via ambulance
[2019-11-15 15:10] VITALS: BP 98/51
[2019-11-15 15:11] VITALS: BP 94/43
--- NOTE | 2019-11-15 17:47 | NUR ---
seen by dr elizabeth and neurologist plan dc today
[2019-11-15] MEDS ORDERED: LEVE500T9 PO (18:04)
--- NOTE | 2019-11-15 19:20 | NUR ---
Received patient lying in bed. AAOX4. In no distress. Denies any pain or SOB. VS WNL. Getting ready to be discharge back home tonight. Will prepare paper work and discharge patient per plan.
--- NOTE | 2019-11-15 20:35 | NUR ---
Patient discharge to home with paper work and belongings. Picked up by patient girlfriend via private car. VS WNL. Denies any pain or SOB.
[2019-11-15] MEDS ORDERED: LEVETIRACETAM 500 MG TABLET PO SCH (21:00)
== END 2019-11-15 20:35 | disposition home or self-care (01) | DRG 53 ==
LOC: ER 19:13 → TELE3 21:41 → CCU 22:34 → TELE-TD3 11-14 22:23 → TELE3 11-15 12:45
PROVIDERS: ADMIT Internal Medicine; ATTEND Internal Medicine
DX: G40.409 Other generalized epilepsy and epileptic syndromes, not intractable, without status epilepticus (principal); E87.6 Hypokalemia; Z87.820 Personal history of traumatic brain injury; G89.21 Chronic pain due to trauma; M54.9 Dorsalgia, unspecified; T14.90XS Injury, unspecified, sequela; V49.9XXS Car occupant (driver) (passenger) injured in unspecified traffic accident, sequela; Z87.09 Personal history of other diseases of the respiratory system
CPT/HCPCS: 36415; 70030-TC; 70450; 70551; 71045; 72125; 80307; 83735; 84100; 84443; 85025; 93005; A4663; G0378; G0480; J1953; J2060; J2405; J7030; J7040; J7060

== ENCOUNTER 2020-01-26 19:30 | Emergency (ER) | payer OTHER ==
[~2020-01-26] VITALS: Ht 175.3 cm; Wt 54.4 kg
--- NOTE | 2020-01-26 20:30 | NUR ---
Patient presents to ER with c/o of wound on Lt middle finger. Patient states that he punched a wall. Wound noted dry, with no redness, swelling or drainage. Patient in no acute distress. Awaiting MD you.
--- NOTE | 2020-01-26 20:40 | NUR ---
Dr. Blackmon at bedside examining patient.
[2020-01-26] MEDS ORDERED: NEOMY/BACITRA/POLYMYXIN B OINT UD PACKET TP ONE ×2 (21:00→21:10)
--- NOTE | 2020-01-26 21:13 | NUR ---
Patient discharged to home in stable conditon. DC instructions and prescriptions given and reviewed with patient. Patient verbalizes understanding of instructions. Patient left ER in no acute distress.
[2020-01-26 21:18] VITALS: BP 110/60
== END 2020-01-26 21:13 | disposition home or self-care (01) ==
LOC: ER 19:32
DX: S60.443A External constriction of left middle finger, initial encounter (principal); F17.200 Nicotine dependence, unspecified, uncomplicated; Z79.899 Other long term (current) drug therapy
CPT/HCPCS: A4663